=== PATIENT | male | born 1940 | race Caucasian/White ===

== ENCOUNTER 2017-04-05 10:46 | Day surgery (SDC) | payer MEDICARE, BC ==
[~2017-04-05] VITALS: Ht 177.8 cm; Wt 76.2 kg
[~2017-04-05 10:46] MED LIST: BENICAR20 MG PO; CENTRUM SILVER1 TA1 PO; GLUCOSAMINE/CHO1 TA2 PO; METOPROLOL SUCC25 M1 PO; MIRALAX17 GM/DOSE PO; MIRALAX17 GM/PACK PO; NORTRIPTYLINE10 MG PO; PREVACID 15 MG15 M1 PO; VITAMIN C500 M1 PO
--- NOTE | 2017-04-05 12:19 | Operative Note ---
Colonoscopy ([place]) Procedure date: 04/05/17 Date of : 44 Procedure:Colonoscopy Colonoscopy with cold snare polypectomy Indications: Mr. Weaver is a 76-year-old gentleman who is here for follow-up screening/ surveillance colonoscopy. The patient does have some intermittent hemorrhoidal prolapse and bleeding. Since his last colonoscopy in July 2010, he has remained on the fiber bowel regimen (MiraLAX plus Citrucel) when necessary. At the time of his last colonoscopy he had a single cecal polyp (tubular adenoma 1) removed. He reports no abdominal pain, weight loss, change in his bowel habits or family history of colon cancer. He was recently diagnosed with prostate cancer. Performing Provider: Sierra Lane MD Referrring Provider: Cuco Adler M.D. ([facility])/Geoff Hurd M.D. Sedation: MAC sedation Procedure: Prior to the procedure, a history and physical exam was performed, and patient medications and allergies were reviewed. The risks and benefits of the procedure and the sedation options and risks were discussed with the patient. All questions were answered and informed consent was obtained. Patient identification and proposed procedure were verified by the physician and the nurse. The patient was placed in a left lateral decubitus position. Throughout the procedure, the patient's blood pressure, pulse, and oxygen saturations were monitored continuously. Findings: On digital rectal examination there was normal rectal tone. There were no external hemorrhoids. The prostate was soft and smooth but there was a small pea -sized nodule. The colonoscope was introduced through the anal canal to the rectum and advanced to the cecum. The ileocecal valve and appendiceal orifice were identified. The scope was advanced a short distance into the ileum which appeared grossly normal. The scope was then withdrawn into the colon. There were 3 diminutive colon polyps identified in the ascending and transverse colon. These ranged in size from 4-6 mm and were all removed via cold snare polypectomy. There were extensive scattered diverticuli throughout the colon but more predominantly in the descending and sigmoid colon (LEFT colon). The rectum itself was normal. Upon retroflexion within the rectum there were grade 1-2 internal hemorrhoids. Impressions: 1. Diminutive colonic polyps 3 2. Extensive pandiverticulosis 3. Grade 1-2 internal hemorrhoids 4. Small prostate nodule Recommendations: I will follow up the polyp pathology and recommend repeat colonoscopy again in 5 years based upon the polyp histology. I would encourage fiber supplementation on a long-term daily maintenance basis. Complications: None EBL (ml): 0 at 1219
[2017-04-05 13:44] VITALS: BP 137/88
== END 2017-04-05 13:06 | disposition home or self-care (01) ==
LOC: SDC 10:46
PROVIDERS: Internal Medicine Gastroenterology
PROC: 0DBL8ZX Excision of Transverse Colon, Via Natural or Artificial Opening Endoscopic, Diagnostic (ICD-10-PCS; principal; 2017-04-05 12:00)
DX: Z12.11 Encounter for screening for malignant neoplasm of colon (principal); D12.3 Benign neoplasm of transverse colon; K63.5 Polyp of colon; K57.30 Diverticulosis of large intestine without perforation or abscess without bleeding; K64.0 First degree hemorrhoids; N40.2 Nodular prostate without lower urinary tract symptoms